=== PATIENT | female | born 1960 | race Caucasian/White ===

== ENCOUNTER → 2023-02-28 | Day surgery (SDC) | payer MEDICARE, BC ==
[2023-02-23 13:49] VITALS: BP 111/54
[~2023-02-28] VITALS: Ht 170.1 cm; Wt 86.2 kg
[~2023-02-28] MED LIST: DOXYCYCLINE HY100 M3 PO; FAMOTIDINE20 M1 PO; OMEPRAZOLE MAGN20 MG PO; PAROXETINE HCL20 MG PO; TRAMADOL HCL50 MG PO; XARELTO10 MG PO; [UNRECOGNIZED DRUG - OTHER] PO
[2023-02-28 06:36] VITALS: BP 123/66
[2023-02-28 08:46] VITALS: BP 129/70
[2023-02-28 09:01] VITALS: BP 100/59
[2023-02-28 09:16] VITALS: BP 122/60
[2023-02-28 09:31] VITALS: BP 120/67
[2023-02-28 09:46] VITALS: BP 121/62
== END ==
LOC: SDC 02-23 13:15
PROVIDERS: ATTEND Podiatrist
DX: D36.7 Benign neoplasm of other specified sites (principal); G58.8 Other specified mononeuropathies; M24.575 Contracture, left foot; M89.9 Disorder of bone, unspecified; M72.2 Plantar fascial fibromatosis; G43.909 Migraine, unspecified, not intractable, without status migrainosus; K44.9 Diaphragmatic hernia without obstruction or gangrene; Z85.3 Personal history of malignant neoplasm of breast; Z98.890 Other specified postprocedural states